=== PATIENT | male | born 1990 | race Caucasian/White ===

== ENCOUNTER 2023-04-08 12:53 | Outpatient (REF) | payer SELFPAY ==
--- NOTE | ~2023-04-08 | XR_ITS ---
EXAMINATION: XR CERVICAL SPINE CLINICAL INFORMATION: Neck pain COMPARISON: 03/18/2016 TECHNIQUE: 5 views of the cervical spine, inclusive of flexion and extension views, were obtained. FINDINGS: Vertebral bodies are well aligned and intervertebral discs are preserved. Pedicles are intact. Neuroforamina are not encroached. Soft tissues unremarkable. XR/XR cervical spine 5V IMPRESSION: Unremarkable examination.
== END 2023-04-08 12:54 | disposition home or self-care (01) ==
LOC: HO.XRAY 12:53
PROVIDERS: PCP Internal Medicine; Visit Provider Internal Medicine
DX: M54.2 Cervicalgia (principal)
CPT/HCPCS: 72050